=== PATIENT | female | born 1990 | race Caucasian/White ===

== ENCOUNTER 2018-04-13 15:53 | Emergency (ER) | payer BC ==
[2018-04-13 15:58] VITALS: TEMP 97.7
[2018-04-13] MEDS ORDERED: Lactated Ringer's 1,000 ML IV STA (16:28)
--- NOTE | 2018-04-13 16:35 | ED PDOC ---
HPI: Abdomen Time Seen by Provider: 04/13/18 16:18 Chief Complaint (Nursing): Abdominal Pain Chief Complaint (Provider): Abdominal Pain History Per: Patient History/Exam Limitations: no limitations Onset/Duration Of Symptoms: Hrs (7), Waxing/Waning Outside of [place] travel?: No Location Of Pain/Discomfort: RUQ, Epigastric, LUQ Additional Complaint(s): 27 y/o female with no significant past medical history presents to the ED complaining of abdominal pain since 09:30 today. Patient reports that the pain is in her epigastric region and radiates to both RUQ an LUQ. Patient states the pain has been constant since onset but is waxing and waning. She has had x2 episodes of nbnb vomiting as well as nausea and loss of appetite. Patient denies fever, chills, diarrhea, constipation, urinary symptoms, vaginal bleeding, vaginal discharge. She has had no known sick contacts or recent travel. Patient did not take any medication for her symptoms. PMD: None Past Medical History Reviewed: Historical Data, Nursing Documentation, Vital Signs Vital Signs: Last Vital Signs Temp 97.7 F 04/13/18 15:56 Pulse 78 04/13/18 15:56 Resp 16 04/13/18 15:56 BP 143/92 H 04/13/18 15:56 Pulse Ox 98 04/13/18 15:56 - Medical History PMH: No Chronic Diseases - Surgical History Surgical History: No Surg Hx - Family History Family History: States: Unknown Family Hx - Social History Current smoker - smoking cessation education provided: No Alcohol: < 2 Drinks/Day (1 wine/night) Drugs: Denies - Home Medications Home Medications: Ambulatory Orders Medication Instructions Recorded Dicyclomine [Bentyl] 20 mg PO QID PRN #20 tab 04/13/18 Famotidine [Pepcid] 40 mg PO DAILY PRN #10 tab 04/13/18 Ondansetron ODT [Zofran ODT] 1 odt PO Q6 PRN #20 odt 04/13/18 - Allergies Allergies/Adverse Reactions: Allergies Allergy/AdvReac Type Severity Reaction Status Date / Time No Known Allergies Allergy Verified 04/13/18 15:56 Review of Systems ROS Statement: Except As Marked, All Systems Reviewed And Found Negative (as per HPI otherwise negative) Constitutional: Negative for: Fever, Chills Gastrointestinal: Positive for: Nausea, Vomiting, Abdominal Pain. Negative for: Diarrhea, Constipation Genitourinary Female: Negative for: Dysuria, Frequency, Incontinence, Vaginal Discharge, Vaginal Bleeding Physical Exam - Reviewed Nursing Documentation Reviewed: Yes Vital Signs Reviewed: Yes - Physical Exam Appears: Positive for: In Acute Distress (mild painful distress) Head Exam: Positive for: ATRAUMATIC, NORMOCEPHALIC Skin: Positive for: Normal Color, Warm, DRY Eye Exam: Positive for: Normal appearance, EOMI, PERRL. Negative for: Scleral icterus ENT: Positive for: Pharynx Is (clear), Other (mucous membranes moist) Neck: Positive for: Painless ROM, Supple Cardiovascular/Chest: Positive for: Regular Rate, Rhythm. Negative for: Murmur Respiratory: Positive for: Normal Breath Sounds. Negative for: Respiratory Distress Gastrointestinal/Abdominal: Positive for: Soft, Tenderness (epigastric and RUQ tenderness to palpation), Other (Positive Mccray's Tenderness; Negative McBurney's point tenderness). Negative for: Mass, Distended, Guarding, Rebound Back: Positive for: Normal Inspection. Negative for: Decreased ROM Extremity: Positive for: Normal ROM. Negative for: Deformity Lymphatic: Negative for: Adenopathy Neurologic/Psych: Positive for: Alert. Negative for: Motor/Sensory Deficits - Laboratory Results Result Diagrams: 04/13/18 17:00 04/13/18 17:00 Urine POC: Negative Urine dip results: Negative for: Leukocyte Esterase, Blood, Nitrate, Ketones, Glucose, Bilirubin, Protein - ECG O2 Sat by Pulse Oximetry: 98 (RA) Pulse Ox Interpretation: Normal Medical Decision Making Medical Decision Making: Time: 16:27 Initial Impression: Upper abdominal pain Differential included but not limited to gastritis, PUD, Gall bladder disease, pancreatitis Initial Plan: * CMP * Lactic Acid * Lipase * CBC w/ diff * PTT * Prothrombin time * IV fluids * Pepcid * Toradol 645p On reevaluation pt reports feeling better. Labs unremarkable. US results pending. DW pt findings so far. Will PO challenge. 705p Tolerated PO well. Accession No. : [id number] Patient Name / ID : LUCIANA POTTS / [id number] Exam Date : 04/13/2018 18:15:16 ( Approved ) Study Comment : Sex / Age : F / 27Y Creator : Terrell Landeros MD Dictator : Terrell Landeros MD Metal Machine Setter : Digital Marketing Analyst : Terrell Landeros MD Approver2 : Report Date : 04/13/2018 19:01:11 My Comment : Date of service: 04/13/2018 HISTORY: upper abdominal pain COMPARISON: None. TECHNIQUE: Sonographic evaluation of the right upper quadrant of the abdomen. FINDINGS: LIVER: Measures 16.5 cm in length. Patent portal vein. Portal venous flow: Hepatopetal. Unremarkable echogenicity of the liver parenchyma. No mass. No intrahepatic bile duct dilatation. GALLBLADDER: Unremarkable. No gallstones. COMMON BILE DUCT: Measures 3.7 mm. No stones. No dilatation. PANCREAS: Unremarkable as visualized. No mass. No ductal dilatation. RIGHT KIDNEY: Measures 0.4 x 9.1 cm in length. Normal echogenicity. No calculus, mass, or hydronephrosis. AORTA: No aneurysmal dilatation. IVC: Unremarkable. OTHER FINDINGS: None . IMPRESSION: No significant or acute findings to account for/ related to the clinical presentation. Acute upper abdominal pain with normal vitals, labs, and ultrasound, improved with ER treatment. Presentation does not appear life-threatening or severe. Stable for discharge with follow up in 24-48 hours and to maintain bland diet with fluids. Bentyl, Zofran and Pepcid presribed for symptoms. Reviewed reasons to RTER. All questions/concerns answered/addressed. Scribe Attestation: Documented by Jasson Stacy acting as a scribe for Jazmine Soto MD. Provider Scribe Attestation: All medical record entries made by the Scribe were at my direction and personally dictated by me. I have reviewed the chart and agree that the record accurately reflects my personal performance of the history, physical exam, medical decision making, and the department course for this patient. I have also personally directed, reviewed, and agree with the discharge instructions and disposition. Disposition - Clinical Impression Clinical Impression: Abdominal pain - Disposition Referrals: Yusra Jeong [Outside] (FOLLOW UP WITH [facility] OR YOUR OWN PCP TOMORROW FOR REEVALUATION) Disposition: Routine/Home Disposition Time: 19:45 Condition: IMPROVED Additional Instructions: MAINTAIN A BLAND DIET WITH PLENTY OF HYDRATING FLUIDS TAKE MEDICATIONS PRESCRIBED FOLLOWUP WITH YOUR DOCTOR OR [facility] IN 24-48 HOURS FOR REEVALUATION RETURN TO ER FOR : INTRACTABLE PAIN OR VOMITING, FAINTING OR NEAR FAINTING, HIGH FEVER, OR ANY OTHER WORRISOME SYMPTOMS. Prescriptions: Dicyclomine [Bentyl] 20 mg PO QID PRN #20 tab PRN Reason: abdominal pain Famotidine [Pepcid] 40 mg PO DAILY PRN #10 tab PRN Reason: reflux Ondansetron ODT [Zofran ODT] 1 odt PO Q6 PRN #20 odt PRN Reason: Nausea/Vomiting Instructions: Acute Abdomen (Belly Pain), Adult (DC) Forms: [facility] ED School/Work Excuse, [employer] (B[place]lades[place])
[2018-04-13 17:14] LABS: BASO # 0.1 K/uL (0.0-0.2); BASO % 0.7 % (0.0-2.0); EOS # 1.4 K/uL (0.0-0.7); EOS % 14.9 % (0.0-4.0); HEMOGLOBIN 13.8 g/dL (12.0-16.0); LYMPH # 2.6 K/uL (1.0-4.3); LYMPH % 27.6 % (20.0-40.0); MEAN CELL VOLUME 85.3 fl (81.0-99.0); MEAN CORPUSCULAR HEMOGLOBIN 28.4 pg (27.0-31.0); MEAN CORPUSCULAR HGB CONC 33.3 g/dL (33.0-37.0); MEAN PLATELET VOLUME 9.3 fl (7.2-11.7); MONO # 0.4 K/uL (0.0-0.8); MONO % 4.4 % (0.0-10.0); NEUT # 4.9 K/uL (1.8-7.0); NEUT % 52.4 % (50.0-75.0); NRBC % 0.2 % (0.0-0.0); RBC 4.86 Mil/uL (3.80-5.20); RED CELL DISTRIBUTION WIDTH 12.7 % (11.5-14.5); WHITE BLOOD COUNT 9.4 K/uL (4.8-10.8)
[2018-04-13 17:21] LABS: ALB/GLOB RATIO 1.4 (1.0-2.1); ALBUMIN 4.3 g/dL (3.5-5.0); ALT/SGPT 34 U/L (9-52); AST/SGOT 27 U/L (14-36); BLOOD UREA NITROGEN 12 mg/dl (7-17); CALCIUM 9.1 mg/dL (8.4-10.2); GFR NON-AFRICAN AMERICAN > 60; LIPASE 27 U/L (23-300)
[2018-04-13 17:30] LABS: PARTIAL THROMBOPLASTIN TIME 21.6 Seconds (25.6-37.1)
--- NOTE | 2018-04-13 19:05 | US ---
Date of service: 04/13/2018 HISTORY: upper abdominal pain COMPARISON: None. TECHNIQUE: Sonographic evaluation of the right upper quadrant of the abdomen. FINDINGS: LIVER: Measures 16.5 cm in length. Patent portal vein. Portal venous flow: Hepatopetal. Unremarkable echogenicity of the liver parenchyma. No mass. No intrahepatic bile duct dilatation. GALLBLADDER: Unremarkable. No gallstones. COMMON BILE DUCT: Measures 3.7 mm. No stones. No dilatation. PANCREAS: Unremarkable as visualized. No mass. No ductal dilatation. RIGHT KIDNEY: Measures 0.4 x 9.1 cm in length. Normal echogenicity. No calculus, mass, or hydronephrosis. AORTA: No aneurysmal dilatation. IVC: Unremarkable. OTHER FINDINGS: None . IMPRESSION: No significant or acute findings to account for/ related to the clinical presentation.
[2018-04-13 19:25] VITALS: BP 138/90; PULSE 74; RESP 18; O2SAT 99
== END 2018-04-13 19:18 | disposition home or self-care (01) ==
LOC: H.ER 15:53
DX: R10.12 Left upper quadrant pain (principal); R10.11 Right upper quadrant pain
CPT/HCPCS: 76705; 80053; 81025; 83605; 83690; 85025; 85610; 85730; 96374; 96375; 99284; J1885; J7120